=== PATIENT | male | born 1990 | race Caucasian/White ===

== ENCOUNTER 2020-09-18 22:53 | Emergency (ER) | payer OTHER ==
[~2020-09-18 22:53] MED LIST: LODINE CAP 300300 MG PO
[2020-09-18] MEDS ORDERED: VALACYCLOVIR1000 MG PO (23:38)
== END 2020-09-18 23:51 | disposition home or self-care (01) ==
LOC: ER1 22:53
DX: B02.30 Zoster ocular disease, unspecified (principal)
CPT/HCPCS: 99283

== ENCOUNTER 2020-10-30 00:43 | Emergency (ER) | payer OTHER ==
[~2020-10-30 00:43] MED LIST changes: +VALACYCLOVIR1000 MG PO
[2020-10-30 02:22] LABS: HEMOGLOBIN 15.9 gm/dl (14.0-17.5); RED BLOOD COUNT 5.43 M/UL (4.20-5.50); WHITE BLOOD COUNT 10.2 K/UL (4.5-11.0)
[2020-10-30 02:41] LABS: BUN/CREATININE RATIO 12 (0-10)
[2020-10-30] MEDS ORDERED: ZOFRAN ODT 4 MG4 MG PO (02:57)
== END 2020-10-30 03:02 | disposition home or self-care (01) ==
LOC: ER1 00:43
PROVIDERS: Physician Assistant
DX: R68.83 Chills (without fever) (principal); R11.2 Nausea with vomiting, unspecified
CPT/HCPCS: 80053; 81001; 85025; 87086; 99284